=== PATIENT | male | born 1965 | race Caucasian/White ===

== ENCOUNTER → 2016-06-09 | Outpatient (CLI) | payer MEDICAID ==
--- NOTE | 2016-06-09 12:10 | DX ---
DEXA Bone Mineral Densitometry Indication: 50-year-old man with history of osteoporosis. Surveillance. Patient currently takes Fosa max, supplemental calcium, and multivitamins. Comparison: March 26, 2014 Technique: Bone Mineral Densitometry (BMD) by Dual Energy X-Ray Absorptiometry (DEXA) was performed utilizing the [employer] scanner. The lumbar spine was evaluated in the AP projection. The left h ip and left forearm were evaluated in the AP projection. Vertebral fracture assessment was also perfo rmed. Findings: AP Lumbar Spine: The L1, L2, L3 and L4 vertebral bodies were evaluated. BMD: 0.822 gm/cm2 T-score: -3.3 SD Z-score: -2.1 SD Decreased density. AP Left Hip: Total BMD: 0.529 gm/cm2 T-score: -4 SD Z-score: -3 SD Decreased density. AP Left Forearm, 05/05: BMD: 0.691 gm/cm2 T-score: -3 SD Z-score: -2.9 SD No change. Vertebral Fracture Assessment: A new compression deformity in the mid thoracic spine has height loss and associated increased sclerosis on the scanogram since 2013. Conclusion: Osteoporosis and progressive decreased density of the left hip since 2013. Additionally, a new mild compression fracture has developed in the midthoracic spine. The ten year risk for any major osteoporotic fracture is 13.9% and for a hip fracture is 6.4%. Any liang ne loss in this patient is probably related to aging or estrogen deficiency. Recommendation: If not recently assessed, recommend excluding secondary metabolic causes of bone los s (reported to be present in as many as 30% of patients with normal Z scores). Laboratory evaluation might include hydroxy vitamin D3 level, TSH, PTH, calcium, 24-hour urine calcium, phosphorous, albumi n, creatinine, alkaline phosphatase, serum electrophoresis (SPEP or UPEP), antitissue transglutamina se antibody levels (celiac disease) and CBC. Recommend continued use of Fosamax as clinically indicated. Supplementing an insufficient diet to achieve total intakes of 1500 mg calcium and 800 International Units of vitamin D daily should be considered. Osteoporosis prevention and treatment begin by modifyi ng risk factors. The patient should be encouraged to participate in a regular exercise program that i ncludes weightbearing and muscle-strengthening regimens, as is clinically appropriate. Recommend follow up DEXA in one year to assess the efficacy of pharmacologic intervention and/or jemima ection of appropriate secondary cause.
== END ==
LOC: FIMAGING 10:26
PROVIDERS: ATTEND Family Medicine
DX: Z13.820 Encounter for screening for osteoporosis (principal); M81.0 Age-related osteoporosis without current pathological fracture; Z79.899 Other long term (current) drug therapy; R29.890 Loss of height

== ENCOUNTER 2017-10-23 16:54 | Emergency (ER) | payer MEDICAID ==
--- NOTE | 2017-10-23 17:19 | EDPHY ---
General Time Seen by Provider: 10/23/17 17:07 Narrative: CHIEF COMPLAINT: Weakness, won't stand or walk HISTORY OF PRESENT ILLNESS: Patient presents with real estate office manager. Crop Research Scientist provides all the history as the patient cerebral palsy and does not communicate verbally or with gestures. Crop Research Scientist is concerned because of increasing weakness, lack of mobility, increasing seizures. This started morning. She says she was on the toilet when he began to have a seizure. She described as a grand mal seizure. He reportedly fell, landing on left side. She states that he did not his head. He did hit his left hip and knee. Since then she thinks that he has been more somnolent until this morning. She also states that he will not stand or ambulate with assistance, and he normally will do this down the deras. Unable to obtain specifics from the patient or modifying factors. He did have several seizures throughout the day on , and 1 on Wednesday. no seizure today. No other associated complaints or modifying factors obtainable from this nonverbal patient. Crop Research Scientist does report that over the past 10-12 days the neurologist has been decreasing his Lamictal. She reports that he normally will stand 30 min a day and walks with assistance down the deras. REVIEW OF SYSTEMS: Ten systems reviewed and are negative unless otherwise noted in the HPI PCP: Dr. Salo Porter SPECIALISTS: Neurologist at [facility], Dr. Trejo PAST MEDICAL HISTORY: Cervical palsy, seizure disorder, contractures PAST SURGICAL HISTORY: No recent surgeries SOCIAL HISTORY: Nonsmoker. Lives with full-time in home care and respite care EXAMINATION General Appearance: Alert, no distress. Presents in wheelchair Head: normocephalic, atraumatic. No Garland sign. No raccoon eyes. No depression or hematoma Eyes: Pupils equal and round, no conjunctival pallor or injection. No dysconjugate gaze. ENT, Mouth: Mucous membranes moist. Poor dentition with airway widely patent. Neck: Severe reversal of lordosis or obvious signs of trauma. Respiratory: Mild rhonchi. No wheezing, crackles, diminishment or distress. Cardiovascular: Regular rate and rhythm, No murmur. Gastrointestinal: Abdomen is soft and nontender. No tympany rigidity. No guarding. No palpable mass. Back: No outward signs of trauma. Neurological: Alert. Unable to test mental status as he is nonverbal. He has spontaneous movement of all 4 extremities without any neglect noted. Unable to test pronator drift or [id number]. Skin: Warm and dry, no rash. Mild erythema to bilateral knees that is symmetric and reportedly chronic. Extremities: Unable to test tenderness. There contractures of all 4 extremities. He is moving all 4 extremities spontaneously without any signs of unilateral neglect. DIFFERENTIAL DIAGNOSES: Including but not limited to weakness, dehydration, seizure disorder, pneumonia , UTI, fracture, CVA, TIA MDM: 5:20 p.m. Reported weakness, lack of ambulatory status and increasing seizures over the past 48 hr. The patient was reportedly more tired and lethargic on but this has resolved. Difficult to obtain a reliable history from the patient as he is nonverbal. I will discuss the case with Dr. Sheth. 6:15 p.m. Case discussed with radiologist Dr. Lynn. 6:25 p.m. Patient re-evaluated. Resting comfortably in no acute distress. I discussed the case further with patient's real estate office manager bedside. She says that he has been drinking insurance somewhat. He has also had some apple here without vomiting or difficulty. 7:25 p.m. Patient re-evaluated. At a very lengthy discussion with the caregiver regarding his laboratory studies and she is concerned only because he is having a cluster focal seizures here and she does not have his medication with her. She is requesting IV Valium. I do feel this is reasonable I will order 5 mg IV Valium. 8:15 p.m. Patient re-evaluated. He is no longer exhibiting seizure activity. The caregiver feels that he is back to his baseline. He is awake and open his eyes spontaneously. I discussed discharge home versus observation here with a caregiver. She says that she is very comfortable taking the patient home at this time. She does not feel that he needs to be admitted to the hospital. Her only request is a refill of the Diastat that they have at home for seizures p.r.n.. I will provide this prescription she will contact his established care for further instructions. We discussed ED precautions for any status, unilateral complaints, vomiting, cough or fever. The caregivers comfortable with this plan and will be discharged in stable condition. SUPERVISION: Patient was independently examined, but I discussed the case with my primary supervising physician Dr. Sheth. - Diagnostics Imaging Results: Imaging Impressions Cervical Spine CT 10/23/17 17:20 Impression: 1. No acute posttraumatic abnormality identified. If there is persistent pain or neurologic deficit, consider MRI and/or flexion and extension views, if clinically indicated. 2. Multilevel degenerative change with additional findings, as above. Findings discussed with Andrew Greenberg PA-C on October 23, [address] 10/23/17 17:20 Impression: 1. No acute intracranial findings. 2. Diffuse cerebral atrophy with periventricular and subcortical low attenuation consistent with chronic microvascular ischemic gliosis. 3. Frontal encephalomalacia suggesting sequela of old trauma. Findings discussed with Andrew Greenberg 10/23/2017 at 18:20. Pelvis CT 10/23/17 17:20 Impression: 1. No acute osseous findings. 2. Additional findings, as above. Findings discussed with Andrew Greenberg PA-C on October 23, 2017 at 1820 hours. Chest X-Ray 10/23/17 17:21 Impression: 1. No definite acute findings in the chest. 2. Extensive reticulonodular opacities, similar to the comparison chest CT, possibly related to previous aspiration or interstitial lung disease. 3. Grossly stable moderate T8 compression fracture. Knee X-Ray 10/23/17 17:21 Impression: No acute osseous findings. - History Smoking Status: Never smoked - Objective Vital Signs: Initial Vital Signs Temperature (C) 99.7 F 10/23/17 16:55 Heart Rate 97 10/23/17 16:55 Respiratory Rate 18 10/23/17 16:55 Blood Pressure 100/59 L 10/23/17 16:55 O2 Sat (%) 93 10/23/17 16:55 O2 Delivery Mode Room Air Allergies/Adverse Reactions: phenobarbital [Phenobarbital] Allergy (Verified 10/23/17 17:01) NEUTRASWEET Allergy (Uncoded 05/15/13 10:18) Home Medications: Medication Instructions Recorded Felbamate [Felbatol] 600 mg PO 09/14/10 Ranitidine HCl [Acid Vending Machine Host/Hostess 150] 75 mg PO 09/14/10 lamoTRIgine [Lamictal] 200 mg PO 09/14/10 levETIRAcetam [Keppra] 750 mg PO TID 09/14/10 Clobazam [Onfi] 5 mg PO DAILY 10/23/17 Diazepam [DIASTAT ACUDIAL] 1 each RC AD PRN #1 kit 10/23/17 Teriparatide [Forteo] 2.4 ml SQ 10/23/17 Laboratory Results: Laboratory Results 10/23/17 17:27 10/23/17 17:27 10/23/17 10/23/17 10/23/17 18:50 18:30 17:27 WBC 5.33 10^3/uL 10^3/uL (3.80-9.50) RBC 4.07 10^6/uL L 10^6/uL (4.40-6.38) Hgb 14.6 g/dL g/dL (13.7-17.5) Hct 42.3 % % (40.0-51.0) MCV 103.9 fL H fL (81.5-99.8) MCH 35.9 pg H pg (27.9-34.1) MCHC 34.5 g/dL g/dL (32.4-36.7) RDW 13.8 % % (11.5-15.2) Plt Count 230 10^3/uL 10^3/uL (150-400) MPV 9.4 fL fL (8.7-11.7) Neut % (Auto) 59.6 % % (39.3-74.2) Lymph % (Auto) 26.1 % % (15.0-45.0) Gilchrist % (Auto) 12.9 % % (4.5-13.0) Eos % (Auto) 0.6 % % (0.6-7.6) Baso % (Auto) 0.6 % % (0.3-1.7) Nucleat RBC Rel Count 0.0 % % (0.0-0.2) Absolute Neuts (auto) 3.18 10^3/uL 10^3/uL (1.70-6.50) Absolute Lymphs (auto) 1.39 10^3/uL 10^3/uL (1.00-3.00) Absolute Monos (auto) 0.69 10^3/uL 10^3/uL (0.30-0.80) Absolute Eos (auto) 0.03 10^3/uL 10^3/uL (0.03-0.40) Absolute Basos (auto) 0.03 10^3/uL 10^3/uL (0.02-0.10) Absolute Nucleated RBC 0.00 10^3/uL 10^3/uL (0-0.01) Immature Gran % 0.2 % % (0.0-1.1) Immature Gran # 0.01 10^3/uL 10^3/uL (0.00-0.10) Sodium Potassium Chloride Carbon Dioxide Anion Gap BUN Creatinine Estimated GFR Glucose Calcium Creatine Kinase CK-MB (CK-2) Fraction CK-MB (CK-2) % Creatine Kinase Interp Urine Color YELLOW Urine Appearance MODERATELY TURBID Urine pH 7.0 (5.0-7.5) Ur Specific [place] 1.026 (1.002-1.030) Urine Protein NEGATIVE (NEGATIVE) Urine Ketones NEGATIVE (NEGATIVE) Urine Blood NEGATIVE (NEGATIVE) Urine Nitrate NEGATIVE (NEGATIVE) Urine Bilirubin NEGATIVE (NEGATIVE) Urine Urobilinogen NEGATIVE EU EU (0.2-1.0) Ur Leukocyte Esterase NEGATIVE (NEGATIVE) Urine RBC Pending Urine WBC Pending Ur Epithelial Cells Pending Urine Glucose NEGATIVE (NEGATIVE) 10/23/17 17:27 WBC RBC Hgb Hct MCV MCH MCHC RDW Plt Count MPV Neut % (Auto) Lymph % (Auto) Gilchrist % (Auto) Eos % (Auto) Baso % (Auto) Nucleat RBC Rel Count Absolute Neuts (auto) Absolute Lymphs (auto) Absolute Monos (auto) Absolute Eos (auto) Absolute Basos (auto) Absolute Nucleated RBC Immature Gran % Immature Gran # Sodium 148 mEq/L H mEq/L (135-145) Potassium 4.7 mEq/L mEq/L (3.3-5.0) Chloride 105 mEq/L mEq/L (97-110) Carbon Dioxide 31 mEq/l mEq/l (22-31) Anion Gap 12 mEq/L mEq/L (8-16) BUN 31 mg/dL H mg/dL (7-23) Creatinine 0.8 mg/dL mg/dL (0.7-1.3) Estimated GFR > 60 Glucose 95 mg/dL mg/dL (70-100) Calcium 9.7 mg/dL mg/dL (8.5-10.4) Creatine Kinase 2604 IU/L H IU/L (0-224) CK-MB (CK-2) Fraction 2.85 ng/mL ng/mL (0.00-4.55) CK-MB (CK-2) % 0.1 % % (0.0-4.0) Creatine Kinase Interp NEGATIVE (NEGATIVE) Urine Color Urine Appearance Urine pH Ur Specific [place] Urine Protein Urine Ketones Urine Blood Urine Nitrate Urine Bilirubin Urine Urobilinogen Ur Leukocyte Esterase Urine RBC Urine WBC Ur Epithelial Cells Urine Glucose Medications Given: Discontinued Medications Sodium Chloride (Ns) 1,000 mls @ 0 mls/hr IV EDNOW ONE; Wide Open PRN Reason: Protocol Stop: 10/23/17 18:27 Last Admin: 10/23/17 18:32 Dose: 1,000 mls Departure - Departure Disposition: Home, Routine, Self-Care Clinical Impression: Weakness, Chris-Gastaut syndrome, not intractable, without status epilepticus Condition: Good Instructions: Recurrent Seizures in Adults (ED) Additional Instructions: 1. Contact primary care physician and neurologist for further care 2. Contact your primary care physician regarding your mildly elevated creatinine kinase level. He will need to have this recheck next week 3. Continue fluid intake 4. Return here for fever, cough, difficulty provided urine, decreased intake by mouth or unilateral complaints Referrals: Salo Porter MD [Primary Care Provider] - As per Instructions Prescriptions: Diazepam [DIASTAT ACUDIAL] 1 each RC AD PRN #1 kit PRN Reason: Seizures
[2017-10-23 17:50] LABS: PLATELET COUNT 230 10^3/uL (150-400)
[2017-10-23 18:20] LABS: CREATINE KINASE 2604 IU/L (0-224)
[2017-10-23] MEDS ORDERED: NS 1,000 ML IV ONE ×2 (18:26→19:36)
[2017-10-23] MEDS ORDERED: DIAZEPAM 5 MG/ML 1 ML SYR IVP ONE (19:36)
[2017-10-23 20:39] VITALS: BP 109/68
== END 2017-10-23 20:57 | disposition home or self-care (01) ==
DX: R53.1 Weakness (principal); G40.812 Lennox-Gastaut syndrome, not intractable, without status epilepticus; E86.9 Volume depletion, unspecified
CPT/HCPCS: 96374; J3360

== ENCOUNTER 2018-04-02 20:09 | Emergency (ER) | payer MEDICAID ==
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
[2018-04-02 21:39] VITALS: BP 119/57
== END 2018-04-02 21:40 | disposition home or self-care (01) ==
LOC: EDUNIT#
PROC: 0HQ1XZZ Repair Face Skin, External Approach (ICD-10-PCS; principal; 2018-04-02)
DX: S01.81XA Laceration without foreign body of other part of head, initial encounter (principal); F72 Severe intellectual disabilities; G80.9 Cerebral palsy, unspecified; G40.909 Epilepsy, unspecified, not intractable, without status epilepticus; Z99.3 Dependence on wheelchair; W05.0XXA Fall from non-moving wheelchair, initial encounter; Y92.9 Unspecified place or not applicable; Y93.9 Activity, unspecified; Y99.9 Unspecified external cause status

== ENCOUNTER → 2018-04-25 | Outpatient (CLI) | payer MEDICAID | LOC: FIMAGING 10:33 | PROVIDERS: ATTEND Internal Medicine Rheumatology | DX: M81.0 Age-related osteoporosis without current pathological fracture (principal) ==

== ENCOUNTER → 2018-08-11 | Outpatient (CLI) | payer MEDICAID ==
[~2018-08-11] MED LIST: DEPO METHYLPREDNISOLONE 80 MG/ML SDV ONE; IOPAMIDOL (ISOVUE 370) 100 ML BTL IV ONE; LIDOCAINE 1% 300 MG/30 ML SDV ONE; ROPIVACAINE HCL 150 MG/30 ML INJ ONE
== END ==
LOC: FIMAGING 10:02
PROVIDERS: ATTEND Orthopaedic Surgery
PROC: 3E0U3BZ Introduction of Anesthetic Agent into Joints, Percutaneous Approach (ICD-10-PCS; principal; 2018-08-11)
PROC: 3E0U33Z Introduction of Anti-inflammatory into Joints, Percutaneous Approach (ICD-10-PCS; principal; 2018-08-11)
DX: M16.11 Unilateral primary osteoarthritis, right hip (principal)
CPT/HCPCS: J1040; J2795; Q9967